=== PATIENT | female | born 1965 | race African-American/Black ===

== ENCOUNTER 2017-11-13 18:36 | Emergency (ER) | payer OTHER ==
[~2017-11-13] VITALS: Ht 175.3 cm; Wt 110.5 kg
[2017-11-13] MEDS ORDERED: IBUPROFEN 800 MG TABLET PO ONE (19:15)
[2017-11-13 20:25] VITALS: BP 148/89
== END 2017-11-13 20:33 | disposition home or self-care (01) ==
LOC: EMS 18:38
DX: M79.641 Pain in right hand (principal); I10 Essential (primary) hypertension; Z88.0 Allergy status to penicillin; Z88.1 Allergy status to other antibiotic agents; Z88.8 Allergy status to other drugs, medicaments and biological substances
CPT/HCPCS: 99284

== ENCOUNTER 2018-02-09 09:01 | Emergency (ER) | payer OTHER ==
[~2018-02-09] VITALS: Ht 175.3 cm; Wt 115.5 kg
[2018-02-09] MEDS ORDERED: KETOROLAC TROMETHAMINE 60 MG/2 ML VIAL IM ONE (11:15)
[2018-02-09] MEDS ORDERED: METHOCARBAMOL 500 MG TABLET PO ONE (11:15)
[2018-02-09 12:19] VITALS: BP 149/84
== END 2018-02-09 12:34 | disposition home or self-care (01) ==
LOC: EMS 09:02
DX: S16.1XXA Strain of muscle, fascia and tendon at neck level, initial encounter (principal); G89.29 Other chronic pain; I10 Essential (primary) hypertension; Z88.0 Allergy status to penicillin; Z88.8 Allergy status to other drugs, medicaments and biological substances; Z91.041 Radiographic dye allergy status; X58.XXXA Exposure to other specified factors, initial encounter; Y93.89 Activity, other specified; Y92.89 Other specified places as the place of occurrence of the external cause; Y99.8 Other external cause status
CPT/HCPCS: 96372; 99283; J1885

== ENCOUNTER 2019-04-19 23:31 | Emergency (ER) | payer SELFPAY ==
[~2019-04-19] VITALS: Ht 175.3 cm; Wt 112.3 kg
[2019-04-19] MEDS ORDERED: BACL20TA PO (23:51)
[2019-04-20] MEDS ORDERED: KETOROLAC TROMETHAMINE 30 MG/ML VIAL IM ONE (00:30)
[2019-04-20] MEDS ORDERED: LIDOCAINE 5% TRANSDERMAL PATCH TD ONE (00:30)
[2019-04-20] MEDS ORDERED: ACETAMINOPHEN 500 MG TABLET PO ONE (00:30)
[2019-04-20 00:52] VITALS: BP 130/73
== END 2019-04-20 00:55 | disposition home or self-care (01) ==
LOC: EMS 23:32
DX: M54.12 Radiculopathy, cervical region (principal); I10 Essential (primary) hypertension; Z88.0 Allergy status to penicillin; Z88.1 Allergy status to other antibiotic agents; Z91.041 Radiographic dye allergy status
CPT/HCPCS: 96372; 99283; J1885

== ENCOUNTER 2019-07-26 12:45 | Emergency (ER) | payer OTHER ==
[~2019-07-26] VITALS: Ht 175.3 cm; Wt 107.7 kg
[~2019-07-26 12:45] MED LIST: BACL20TA PO
[2019-07-26] MEDS ORDERED: NIFE10 PO (12:52)
[2019-07-26] MEDS ORDERED: LISI-661 PO (12:52)
[2019-07-26] MEDS ORDERED: UNK ABX PO (12:52)
[2019-07-26] MEDS ORDERED: IBUP-2071 PO (12:52)
[2019-07-26 15:31] VITALS: BP 118/70
== END 2019-07-26 15:32 | disposition home or self-care (01) ==
LOC: EMS 12:46
DX: L98.8 Other specified disorders of the skin and subcutaneous tissue (principal); I10 Essential (primary) hypertension; G89.29 Other chronic pain; Z79.899 Other long term (current) drug therapy; Z88.0 Allergy status to penicillin; Z88.1 Allergy status to other antibiotic agents; Z88.6 Allergy status to analgesic agent; Z91.041 Radiographic dye allergy status

== ENCOUNTER 2019-08-02 12:36 | Emergency (ER) | payer OTHER ==
[~2019-08-02] VITALS: Ht 175.3 cm; Wt 107.7 kg
[~2019-08-02 12:36] MED LIST changes: +IBUP-2071 PO; +LISI-661 PO; +NIFE10 PO; +UNK ABX PO
[2019-08-02 13:28] VITALS: BP 129/84
[2019-08-02] MEDS ORDERED: NIFE-39 PO (14:05)
[2019-08-02] MEDS ORDERED: LOSA100T58 PO (14:05)
[2019-08-02] MEDS ORDERED: KETOROLAC TROMETHAMINE 30 MG/ML VIAL IM ONE (14:15)
[2019-08-02] MEDS ORDERED: LIDOCAINE 5% TRANSDERMAL PATCH TD ONE (14:15)
== END 2019-08-02 16:03 | disposition home or self-care (01) ==
LOC: EMS 12:37
DX: M62.838 Other muscle spasm (principal); I10 Essential (primary) hypertension; G89.29 Other chronic pain; Z79.899 Other long term (current) drug therapy; Z88.0 Allergy status to penicillin; Z88.8 Allergy status to other drugs, medicaments and biological substances; Z88.1 Allergy status to other antibiotic agents; Z91.041 Radiographic dye allergy status
CPT/HCPCS: 96372; 99283; J1885

== ENCOUNTER 2020-06-11 14:25 | Emergency (ER) | payer OTHER ==
[~2020-06-11] VITALS: Ht 175.3 cm; Wt 112.3 kg
[~2020-06-11 14:25] MED LIST changes: +LOSA100T58 PO; +NIFE-39 PO; -NIFE10 PO; -UNK ABX PO
[2020-06-11 17:14] VITALS: BP 126/76
== END 2020-06-11 19:37 | disposition home or self-care (01) ==
LOC: EMS 14:35
DX: M54.2 Cervicalgia (principal); I10 Essential (primary) hypertension; G89.29 Other chronic pain; Z88.0 Allergy status to penicillin; Z88.8 Allergy status to other drugs, medicaments and biological substances; Z88.1 Allergy status to other antibiotic agents; Z91.041 Radiographic dye allergy status
CPT/HCPCS: 99283; Z7502

== ENCOUNTER 2020-11-04 16:09 | Emergency (ER) | payer OTHER ==
[~2020-11-04] VITALS: Ht 175.3 cm; Wt 110.0 kg
[~2020-11-04 16:09] MED LIST changes: -LISI-661 PO; +LISI-893 PO
[2020-11-04] MEDS ORDERED: LIDOCAINE 1% 10 ML VIAL SQ ONE (17:30)
[2020-11-04] MEDS ORDERED: BACITRACIN 0.9 GM PACKET OINTMENT TP ONE (18:00)
[2020-11-04 18:19] VITALS: BP 126/71
== END 2020-11-04 18:21 | disposition home or self-care (01) ==
LOC: EMS 16:11
DX: L60.0 Ingrowing nail (principal); I10 Essential (primary) hypertension; Z88.0 Allergy status to penicillin; Z88.8 Allergy status to other drugs, medicaments and biological substances; Z91.041 Radiographic dye allergy status; Z88.1 Allergy status to other antibiotic agents; Z79.899 Other long term (current) drug therapy
CPT/HCPCS: 11730; 99284; J3490

== ENCOUNTER 2021-04-19 00:23 | Emergency (ER) | payer OTHER ==
[~2021-04-19] VITALS: Ht 175.3 cm; Wt 110.4 kg
[2021-04-19] MEDS ORDERED: KETOROLAC TROMETHAMINE 30 MG/ML VIAL IM ONE (02:15)
[2021-04-19 02:45] VITALS: BP 130/71
== END 2021-04-19 02:54 | disposition home or self-care (01) ==
LOC: EMS 00:24
DX: M62.838 Other muscle spasm (principal); M54.2 Cervicalgia; I10 Essential (primary) hypertension; Z88.0 Allergy status to penicillin; Z79.899 Other long term (current) drug therapy
CPT/HCPCS: 96372; 99283; J1885

== ENCOUNTER 2023-02-23 18:20 | Emergency (ER) | payer OTHER ==
[~2023-02-23] VITALS: Ht 175.3 cm; Wt 107.7 kg
[~2023-02-23 18:20] MED LIST changes: +IBUP-1493 PO; -IBUP-2071 PO; -LOSA100T58 PO; +LOSA100T59 PO; +NIFE-129 PO; -NIFE-39 PO
[2023-02-23] MEDS ORDERED: METO-408 PO (18:27)
[2023-02-23] MEDS ORDERED: ATOR10TA69 PO (18:27)
[2023-02-23 18:29] VITALS: TEMP 98.3
[2023-02-23] MEDS ORDERED: DICL2100G TP (19:41)
[2023-02-23] MEDS ORDERED: METH-812 PO (19:41)
[2023-02-23] MEDS ORDERED: CHOL500013 PO (19:41)
[2023-02-23] MEDS ORDERED: KETOROLAC TROMETHAMINE 30 MG/ML VIAL IM ONE (19:45)
[2023-02-23] MEDS ORDERED: LIDOCAINE 5% TRANSDERMAL PATCH TD ONE (19:45)
[2023-02-23] MEDS ORDERED: ACETAMINOPHEN 500 MG TABLET PO ONE (19:45)
[2023-02-23 20:55] VITALS: BP 139/84; PULSE 74; RESP 16
== END 2023-02-23 21:09 | disposition home or self-care (01) ==
LOC: EMS 18:20
DX: G89.29 Other chronic pain (principal); M54.50 Low back pain, unspecified; I10 Essential (primary) hypertension; M54.2 Cervicalgia; M25.512 Pain in left shoulder; M25.511 Pain in right shoulder; Z91.040 Latex allergy status; Z88.0 Allergy status to penicillin; Z88.8 Allergy status to other drugs, medicaments and biological substances
CPT/HCPCS: 99283; 96372; J1885

== ENCOUNTER 2024-04-09 04:14 | Emergency (ER) | payer OTHER ==
[~2024-04-09] VITALS: Ht 175.3 cm; Wt 108.0 kg
[~2024-04-09 04:14] MED LIST changes: +ATOR10TA69 PO; -BACL20TA PO; +CHOL500013 PO; +DICL2100G TP; -IBUP-1493 PO; +METH-812 PO; +METO-408 PO
[2024-04-09 04:47] VITALS: TEMP 98.9
[2024-04-09] MEDS: TraMADol HCL 50 MG TABLET PO ONE (05:26)
[2024-04-09] MEDS: KETOROLAC TROMETHAMINE 30 MG/ML VIAL IM ONE (05:27)
[2024-04-09] MEDS: LIDOCAINE 5% TRANSDERMAL PATCH TD ONE (05:28)
[2024-04-09 05:54] VITALS: BP 132/89; PULSE 74; RESP 16; O2SAT 100
== END 2024-04-09 06:54 | disposition home or self-care (01) ==
LOC: EMS 04:20
DX: M79.18 Myalgia, other site (principal); I10 Essential (primary) hypertension; Z88.0 Allergy status to penicillin; Z88.1 Allergy status to other antibiotic agents; Z91.041 Radiographic dye allergy status; Z88.6 Allergy status to analgesic agent
CPT/HCPCS: 99283; 71045; 96372; J1885

== ENCOUNTER 2024-04-15 18:50 | Emergency (ER) | payer OTHER ==
[~2024-04-15] VITALS: Ht 175.3 cm; Wt 106.4 kg
[2024-04-15] MEDS: LIDOCAINE 5% TRANSDERMAL PATCH TD ONE (23:46)
[2024-04-15] MEDS: KETOROLAC TROMETHAMINE 30 MG/ML VIAL IM ONE (23:47)
[2024-04-15] MEDS: TraMADol HCL 50 MG TABLET PO ONE (23:47)
[2024-04-16 01:00] VITALS: BP 141/72; PULSE 78; RESP 18; TEMP 97.3; O2SAT 97
[2024-04-16] MEDS ORDERED: LIDO700A15 TP (01:04)
== END 2024-04-16 02:29 | disposition home or self-care (01) ==
LOC: EMS 18:50
DX: M79.18 Myalgia, other site (principal); I10 Essential (primary) hypertension; G89.29 Other chronic pain; M54.2 Cervicalgia; Z98.890 Other specified postprocedural states; Z91.040 Latex allergy status; Z88.0 Allergy status to penicillin; Z88.8 Allergy status to other drugs, medicaments and biological substances
CPT/HCPCS: 99283; 93005; 96372; J1885

== ENCOUNTER 2024-12-24 17:34 | Emergency (ER) | payer OTHER ==
[~2024-12-24] VITALS: Ht 175.3 cm; Wt 106.4 kg
[~2024-12-24 17:34] MED LIST changes: +LIDO-57 TP
[2024-12-24] MEDS ORDERED: ATOR20TA65 PO (20:16)
[2024-12-24] MEDS ORDERED: METF-1211 PO (20:16)
[2024-12-24] MEDS: methocarbamoL 500 MG TABLET PO ONE (20:24)
[2024-12-24] MEDS: LIDOCAINE 5% TRANSDERMAL PATCH TD ONE (20:24)
[2024-12-24] MEDS: ACETAMINOPHEN 500 MG TABLET PO ONE (20:24)
[2024-12-24] MEDS: KETOROLAC TROMETHAMINE 30 MG/ML VIAL IM ONE (20:25)
[2024-12-24] MEDS ORDERED: METH-812 PO (20:54)
[2024-12-24 21:03] VITALS: BP 137/67; PULSE 88; RESP 16; TEMP 98.1; O2SAT 99
== END 2024-12-24 21:15 | disposition home or self-care (01) ==
LOC: EMS 17:36
DX: M62.838 Other muscle spasm (principal); M54.2 Cervicalgia; I10 Essential (primary) hypertension; G89.29 Other chronic pain; Z98.890 Other specified postprocedural states; Z88.0 Allergy status to penicillin; Z91.041 Radiographic dye allergy status; Z79.899 Other long term (current) drug therapy; Z88.8 Allergy status to other drugs, medicaments and biological substances
CPT/HCPCS: 99284; 96372; J1885

== ENCOUNTER 2025-04-14 00:20 | Emergency (ER) | payer OTHER ==
[~2025-04-14] VITALS: Ht 175.3 cm; Wt 105.0 kg
[~2025-04-14 00:20] MED LIST changes: -ATOR10TA69 PO; +ATOR20TA65 PO; -CHOL500013 PO; -DICL2100G TP; -LIDO-57 TP; -LISI-893 PO; -LOSA100T59 PO; +METF-1211 PO; -METO-408 PO; -NIFE-129 PO
[2025-04-14] MEDS: ACETAMINOPHEN 500 MG TABLET PO ONE (03:04)
[2025-04-14] MEDS: KETOROLAC TROMETHAMINE 30 MG/ML VIAL IM ONE (03:04)
[2025-04-14 03:15] VITALS: BP 115/63; PULSE 79; RESP 16; O2SAT 98
== END 2025-04-14 04:28 | disposition home or self-care (01) ==
LOC: EMS 00:21
DX: S46.811A Strain of other muscles, fascia and tendons at shoulder and upper arm level, right arm, initial encounter (principal); M54.2 Cervicalgia; M54.50 Low back pain, unspecified; I10 Essential (primary) hypertension; E11.9 Type 2 diabetes mellitus without complications; Z79.84 Long term (current) use of oral hypoglycemic drugs; Z88.0 Allergy status to penicillin; Z91.041 Radiographic dye allergy status; Z79.899 Other long term (current) drug therapy; X50.0XXA Overexertion from strenuous movement or load, initial encounter; Y93.89 Activity, other specified; Y92.89 Other specified places as the place of occurrence of the external cause; Y99.8 Other external cause status
CPT/HCPCS: 99283; 96372; J1885